=== PATIENT | female | born 1975 | race Caucasian/White ===

== ENCOUNTER 2021-10-07 08:27 | Outpatient (REF) | payer OTHER, SELFPAY ==
--- NOTE | ~2021-10-07 | MM_ITS ---
EXAMINATION: MM SCREENING DIGITAL BREAST TOMOSYNTHESIS, BILATERAL CLINICAL INFORMATION: Screening. Asymptomatic. Age 46. No prior breast imaging. No known family history breast cancer. The lifetime risk of breast cancer based on the Tyrer-Cuzick Model is 6%. COMPARISON: None (current study represents initial baseline exam). TECHNIQUE: Digital breast tomosynthesis is performed in both the craniocaudal and mediolateral oblique views along with computer-aided detection (CAD). Synthesized 2D images are generated from the tomosynthesis. FINDINGS: There are scattered areas of fibroglandular density (ACR BI-RADS breast composition Category b). There are no significant masses, abnormal calcifications, or other abnormalities. No architectural abnormality. The axilla and skin contours are unremarkable. MM/MM tomosynthesis screening BI IMPRESSION: No mammographic evidence of malignancy. ASSESSMENT: BI-RADS 1: Negative RECOMMENDATION: Routine annual mammography screening. This patient's information was entered into a reminder system with a target due date for their next mammogram.
--- NOTE | ~2021-10-07 | MM_ITS ---
EXAMINATION: BONE DENSITOMETRY CLINICAL INDICATION: Age-related osteoporosis without current pathological fracture. COMPARISON: Baseline BD dated 09/23/2018. TECHNIQUE: Using a [employer] DXA System (software version: 13.1) manufactured by [employer], dual-energy x-ray absorptiometry was performed of the lumbar spine and left hip. The images are of good technical quality. Summary results are attached. FINDINGS: AP SPINE L1-L4: Current: BMD 0.896 g/cm2, Z-score -2.2, T-score -2.4, osteopenia, 19.8% decrease from baseline (<5% change is not significant). Baseline: BMD 1.117 g/cm2. LEFT FEMUR, NECK: Current: BMD 0.750 g/cm2, Z-score -1.4, T-score -2.1, osteopenia. Baseline: BMD 0.621 g/cm2. LEFT FEMUR, TOTAL: Current: BMD 0.894 g/cm2, Z-score -0.6, T-score -0.9, normal, 16.1% increase from baseline (<5% change is not significant). Baseline: BMD 0.770 g/cm2. IDENTIFIED RISK FACTORS: Osteoporosis, tobacco use (current smoker), recurrent falls, height loss, low calcium intake, history of fracture (adult). Early menopause, secondary osteoporosis, anticonvulsants, hysterectomy. HISTORY OF FRACTURE: Lower leg/ankle. MEDICATIONS: None listed. MM/XR DEXA axial skeleton IMPRESSION: 1. DIAGNOSIS: Osteopenia based on the lowest T-score value of -2.4 in the lumbar spine applying World Health Organization criteria. 2. 10-YEAR FRACTURE RISK PREDICTION, FRAX: Major osteoporotic fracture (clinical spine, forearm, hip or shoulder) 9.9%. Hip fracture 2.9%. 3. Treatment Recommendations: NOF guidelines recommend consideration for treatment in postmenopausal women and men age 50 and older presenting with the following: -A hip or vertebral (clinical or morphometric) fracture. -T-score less than or equal to -2.5 at the femoral neck or spine after appropriate evaluation to exclude secondary causes. -Low bone mass at the hip or spine and a 10-year fracture probability by FRAX of greater than or equal to 3% for hip fracture or greater than or equal to 20% for major osteoporotic fracture based on the [place] adapted WHO algorithm. 4. Other Recommendations: All treatment decisions require clinical judgment and consideration of individual patient factors, including patient preferences, comorbidities, previous drug use, risk factors not captured in the FRAX model (e.g. frailty, falls, vitamin D deficiency, increased bone turnover, interval significant decline in bone density) and possible under or overestimation of fracture risk by FRAX. Additional medical evaluation for secondary cause of low bone mineral density may be appropriate. FUTURE SCAN RECOMMENDATION: People with diagnosed cases of osteoporosis or at high risk for fracture should have regular bone mineral density tests. For patients eligible for Medicare, routine testing is allowed once every 2 years. The testing frequency can be increased to one year for patients who have rapidly progressing disease, those who are receiving or discontinuing medical therapy to restore bone mass, or have additional risk factors.
== END 2021-10-07 08:28 | disposition home or self-care (01) ==
LOC: HO.MAMMO 08:27
PROVIDERS: PCP Internal Medicine; Visit Provider Internal Medicine
DX: Z12.31 Encounter for screening mammogram for malignant neoplasm of breast (principal); Z13.820 Encounter for screening for osteoporosis; M81.0 Age-related osteoporosis without current pathological fracture; Z78.0 Asymptomatic menopausal state
CPT/HCPCS: 77063; 77067; 77080

== ENCOUNTER → 2021-12-12 11:34 | Outpatient (BNVA) | payer OTHER, SELFPAY | PROVIDERS: PCP Internal Medicine; Visit Provider Internal Medicine Pulmonary Disease | DX: J45.909 Unspecified asthma, uncomplicated (principal); F17.210 Nicotine dependence, cigarettes, uncomplicated | CPT/HCPCS: 99202 ==

== ENCOUNTER 2021-12-29 09:49 | Outpatient (REF) | payer OTHER, SELFPAY ==
--- NOTE | 2021-12-29 12:56 | PFT_ITS ---
Forced vital capacity 92%. FEV1 89%. FEV1/FVC ratio 77. FEF 25/75 of 82% and MVV 73%. Post bronchodilator therapy, there is no significant change. Total lung capacity 102% and residual volume 117%. Diffusion capacity 56%. CONCLUSION: There is no evidence of restrictive or obstructive airway disorder. Also, no response to bronchodilator therapy. Diffusion capacity is moderately reduced as an isolated abnormality. This may be due to presence of pulmonary emphysema or non pulmonary factors. Clinical correlation is recommended. MD MUKESH Cary/MODL / [id number]
== END 2021-12-29 09:50 | disposition home or self-care (01) ==
LOC: HO.RESP 09:49
PROVIDERS: PCP Internal Medicine; Visit Provider Internal Medicine Pulmonary Disease
DX: J45.909 Unspecified asthma, uncomplicated (principal); R06.00 Dyspnea, unspecified
CPT/HCPCS: 94060; 94727; 94729

== ENCOUNTER 2022-12-25 10:58 | Outpatient (AMB) | payer OTHER, SELFPAY ==
[2022-12-25 11:02] VITALS: BP 102/68; PULSE 125; O2SAT 99; BMI 25.3
--- NOTE | 2022-12-25 11:02 | A.OFFPC_ITS ---
Vital Signs 12/25/22 11:02 Height 5 ft 1 in Weight 134 lb BMI 25.3 BP 102/68 Blood Pressure Location Lt brachial Position Sitting Pulse 125 H Pulse Source Pulse Oximeter Temp Source Skin Pulse Oximetry (%) 99 Oxygen Delivery Method Room Air Intake Visit Reasons: COPD, Allergies lamotrigine Allergy (Intermediate, Verified 09/17/22 14:05) Migraine spider venom [spider bites] Allergy (Intermediate, Verified 09/17/22 14:05) reaction to skin Tobacco use date assessed: 12/25/22 Dental Screening Dental Screen Date: 12/25/22 Did you have a dental visit in the last 12 months?: No Did you have a dental problem in the last 6 months where you did not have access to dental care?: No HPI COPD, HPI Details 47-year-old female with COPD seizures an d bipolar disorder last seen in June 2022. Patient is here for follow-up patient was advised blood work but this was not done. So far patient has continued to abstain from smoking. Otherwise denies any nausea vomiting fevers coughs colds no bowel bladder symptoms. On examination concerned about the tachycardia running at 120 it is regular. Advised EKG discussed about things that can cause the heart rate to run fast caffeine, ADHD medication coke albuterol, patient denies taking any drugs. Will continue to monitor for now. Patient is reminded about the blood work. Patient brought in a form for her electricity. 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 Father No problems noted. Sister No problems noted. Sister No problems noted. Sister No problems noted. Brother No problems noted. Brother Diabetes Daughter No problems noted. Daughter No problems noted. Daughter No problems noted. Son No problems noted. Other Mental health disorder Social History (Updated 10/23/20 @ 14:40 by Amee Merchant CMA) Housing: House Alcohol intake: current Alcohol intake frequency: holidays/special occasions only Patient Tobacco Use Status: Former Tobacco user Tobacco use type: Cigarette Cigarettes Per Day: 10 e-Cigarette/Vaping Use: Never Used Second Hand Smoke Exposure: Yes service: No Current occupational status: disabled Cognitive needs: No Hearing needs: No Vision needs: Yes Questionnaire Thrive Questionnaire Date Thrive assessed: 06/04/22 AUDIT C Alcohol Use Questionnaire (AUDIT-C) 1. How often do you have a drink containing alcohol?: Monthly or less 2. How many drinks containing alcohol do you have on a typical day when you are drinking?: 1 or 2 3. How often do you have six or more drinks on one occasion?: Never Total Score: 1 YVONNE-7 AMB Questionnaire YVONNE-7 Date YVONNE - 7 assessed: 06/04/22 Source: Developed by Drs. Tommie Kay, Mary Kay Curran, Clifford Armenta and colleagues, with an educational deanna from [employer]. Physical exam (Primary Care) Vital Signs: Last Vital Signs Pulse 125 H 12/25/22 11:02 BP 102/68 12/25/22 11:02 Pulse Ox 99 12/25/22 11:02 Oxygen Delivery Method Room Air 12/25/22 11:02 BMI result Body Mass Index 25.3 Tobacco/Smoking Status: Tobacco use Status Tobacco use date assessed 12/25/22 12/25/22 11:06 Patient Tobacco Use Status Former Tobacco user 12/25/22 11:06 Tobacco use type Cigarette 12/25/22 11:06 e-Cigarette/Vaping Use Never Used 12/25/22 11:06 Thrive Assessment: Date of Thrive Assessment Date Thrive assessed 06/04/22 12/25/22 11:06 Const General: alert; No acute distress Eyes Conjunctivae: conjunctivae normal Resp Auscultation: clear to auscultation bilaterally Cardio Rate: regular rate Rhythm: regular rhythm GI Inspection: Yes normal to inspection Extrem General: Yes normal to inspection and No edema Assessment and Plan Assessment & Plan (1) COPD (chronic obstructive pulmonary disease): Code(s): J44.9 - Chronic obstructive pulmonary disease, unspecified Plan: Continue with the inhalers Ventolin and Advair and always rinse mouth after using Advair (2) Colon cancer screening: Code(s): Z12.11 - Encounter for screening for malignant neoplasm of colon Plan: Patient is reminded about colonoscopy (3) 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: Comment: eeg April 2019 Code(s): G40.209 - Localization-related (focal) (partial) symptomatic epilepsy and epileptic syndromes with complex partial seizures, not intractable, without status epilepticus Qualifiers: Status epilepticus: without status epilepticus Qualified Code(s): G40.209 - Localization-related (focal) (partial) symptomatic epilepsy and epileptic syndromes with complex partial seizures, not intractable, without status epilepticus Plan: Continue with Vimpat patient is advised blood work (4) Bipolar disorder: Comment: [facility] Code(s): F31.9 - Bipolar disorder, unspecified Qualifiers: Active/Remission status: currently active Current bipolar episode type: mixed Current episode severity: moderate Qualified Code(s): F31.62 - Bipolar disorder, current episode mixed, moderate Plan: Continue with counseling and therapy patient is taking oxcarbazepine LULY pain fluoxetine Abilify (5) Sinus tachycardia: Code(s): R00.0 - Tachycardia, unspecified Orders: Orders ECG 12 lead EKG Today R00.0 - Tachycardia, unspecified Referrals Cologuard Test Z12.11 - Encounter for screening for malignant neoplasm of colon Coding Level of Care Code Est Pt Level 4 (22000) Diagnoses COPD (chronic obstructive pulmonary disease) J44.9 Colon cancer screening Z12.11 Partial symptomatic epilepsy with complex partial seizures, not intractable, without status epilepticus G40.209 Status epilepticus: without status epilepticus Bipolar disorder, current episode mixed, moderate F31.62 Active/Remission status: currently active Current bipolar episode type: mixed Current episode severity: moderate Sinus tachycardia R00.0
== END 2022-12-25 11:33 | disposition home or self-care (01) ==
PROVIDERS: PCP Internal Medicine; Visit Provider Internal Medicine
DX: J44.9 Chronic obstructive pulmonary disease, unspecified (principal); Z12.11 Encounter for screening for malignant neoplasm of colon; G40.209 Localization-related (focal) (partial) symptomatic epilepsy and epileptic syndromes with complex partial seizures, not intractable, without status epilepticus; F31.62 Bipolar disorder, current episode mixed, moderate; R00.0 Tachycardia, unspecified
CPT/HCPCS: 99214

== ENCOUNTER 2023-02-17 10:47 | Outpatient (AMB) | payer OTHER, SELFPAY ==
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
[2023-02-17 10:50] VITALS: BP 148/82; PULSE 89; RESP 15; O2SAT 95; BMI 29.1
== END 2023-02-17 11:41 | disposition home or self-care (01) ==
PROVIDERS: Visit Provider Psychiatry & Neurology Neurology
DX: G40.209 Localization-related (focal) (partial) symptomatic epilepsy and epileptic syndromes with complex partial seizures, not intractable, without status epilepticus (principal)
CPT/HCPCS: 99204

== ENCOUNTER → 2023-02-17 10:47 | Outpatient (BNVA) | payer OTHER, SELFPAY | PROVIDERS: Visit Provider Psychiatry & Neurology Neurology | DX: G40.209 Localization-related (focal) (partial) symptomatic epilepsy and epileptic syndromes with complex partial seizures, not intractable, without status epilepticus (principal); Z79.899 Other long term (current) drug therapy | CPT/HCPCS: 99202 ==

== ENCOUNTER 2023-05-24 09:32 | Outpatient (AMB) | payer OTHER, SELFPAY ==
--- NOTE | 2023-05-24 09:34 | A.OFFPC_ITS ---
Vital Signs 05/24/23 09:36 Height 5 ft 1 in Weight 156 lb 8 oz BMI 29.6 BP 130/72 Blood Pressure Location Lt brachial Position Sitting Pulse 88 Pulse Source Pulse Oximeter Pulse Oximetry (%) 97 Oxygen Delivery Method Room Air Intake Visit Reasons: knee pain Intake Note: Patient is here today for right knee pain, with swelling. OTC not helping, nor is icing, elevation. Community Worker Required: No Aircraft Lay Out Worker: Not Required per policy Accompanied by: Self / Same As Patient Allergies lamotrigine Allergy (Intermediate, Verified 05/24/23 10:14) Migraine spider venom [spider bites] Allergy (Intermediate, Verified 05/24/23 10:14) reaction to skin Medication List - Last Reconciled 05/24/23 by Parish Connolly MD albuterol sulfate 2.5 mg (3 mL) inhalation QID PRN albuterol sulfate 90 mcg/actuation (Ventolin HFA) 2 puffs PO Q4-6H PRN aripiprazole (Abilify) 5 mg PO DAILY buprenorphine-naloxone 8-2 mg Clean slate erdbsrpoxj-phcrzgqpegwrx-jkvw 50-300-40 mg 1 cap PO TID PRN clonazepam [facility] dextroamphetamine-amphetamine 20 mg 1 tab PO DAILY fluoxetine mg PO DAILY fluticasone propion-salmeterol 230-21 mcg/actuation (Advair HFA) 2 puffs inhalation Q12H 30 days gabapentin 600 mg PO TID levetiracetam 250 mg PO BID nebulizers (Aeroneb Go Nebulizer) As directed oxcarbazepine 600 mg PO BID Tobacco use date assessed: 05/24/23 Dental Screening Dental Screen Date: 05/24/23 Did you have a dental visit in the last 12 months?: No Did you have a dental problem in the last 6 months where you did not have access to dental care?: No Was dental information given to patient?: No (dentures) HPI knee pain HPI Details 48-[facility]-old [facility] I am covering for her primary care provider. Patient is complaining of her right knee pain for the past 10 days. Does not recall any fall or injury prior to the onset of symptoms. Pain on walking and pain on bearing weight on the right leg. No fevers or chills. 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 Father No problems noted. Sister No problems noted. Sister No problems noted. Sister No problems noted. Brother No problems noted. Brother Diabetes Daughter No problems noted. Daughter No problems noted. Daughter No problems noted. Son No problems noted. Other Mental health disorder Social History Housing: House Alcohol intake: current Alcohol intake frequency: holidays/special occasions only Patient Tobacco Use Status: Former Tobacco user Tobacco use type: Cigarette Cigarettes Per Day: 10 e-Cigarette/Vaping Use: Never Used Second Hand Smoke Exposure: Yes service: No Current occupational status: disabled Cognitive needs: No Hearing needs: No Vision needs: Yes Questionnaire PHQ-9 Over the last 2 weeks, how often have you been bothered by any of the following problems? 1. Little interest or pleasure in doing things: nearly every day 2. Feeling down, depressed, or hopeless: nearly every day 3. Trouble falling or staying asleep, or sleeping too much: nearly every day 4. Feeling tired or having little energy: nearly every day 5. Poor appetite or overeating: nearly every day 6. Feeling bad about yourself - or that you are a failure or have let yourself or your family down: nearly every day 7. Trouble concentrating on things, such as reading the newspaper or watching television: nearly every day 8. Moving or speaking so slowly that other people could have noticed. Or the opposite - being so fidgety or restless that you have been moving around a lot more than usual: several days 9. Thoughts that you would be better off or of hurting yourself in some way: not at all Total score: 22 Source: Developed by Drs. Tommie Kay, Mary Kay Curran, Clifford Armenta and colleagues, with an educational deanna from [employer]. Thrive Questionnaire Date Thrive assessed: 05/24/23 I am a: Patient What is your living situation today?: I have a steady place to live Within the past 12 months, did the food you bought not last and you didn't have the money to get more?: Never true Within the past 12 months, did you worry whether your food would run out before you got money to buy more?: Never true Do you have trouble paying for medicines?: No Do you have trouble getting transportation to medical appointments?: No Do you have trouble paying your heating and electricity bill?: No Do you have trouble taking care of your child, family member or friend?: No Do you have trouble with day-to-day activities such as bathing, preparing meals, shopping, managing finances, etc.?: No Are you currently unemployed and looking for a job?: No Are you interested in more education?: No Currently or been in a relationship where the following occur: no concerns reported THRIVE Score: 0 AUDIT C Alcohol Use Questionnaire (AUDIT-C) 1. How often do you have a drink containing alcohol?: Monthly or less 2. How many drinks containing alcohol do you have on a typical day when you are drinking?: 1 or 2 Total Score: 1 YVONNE-7 AMB Questionnaire YVONNE-7 Date YVONNE - 7 assessed: 05/24/23 Feeling nervous, anxious, or on edge: 2 = More than half the days Not being able to stop or control worryin = Nearly every day Worrying too much about different things: 3 = Nearly every day Trouble relaxin = Nearly every day Being so restless that it is hard to sit still: 0 = Not at all Becoming easily annoyed or irritable: 2 = More than half the days Feeling afraid as if something awful might happen: 3 = Nearly every day Total YVONNE-7 score (0-4 normal; 5-9 mild; 10-14 moderate; 15-21 severe): 16 Source: Developed by Drs. Tommie Kay, Mary Kay Curran, Clifford Armenta and colleagues, with an educational deanna from [employer]. Physical exam (Primary Care) Vital Signs: Last Vital Signs Pulse 88 05/24/23 09:36 BP 130/72 05/24/23 09:36 Pulse Ox 97 05/24/23 09:36 Oxygen Delivery Method Room Air 05/24/23 09:36 BMI result Body Mass Index 29.6 Tobacco/Smoking Status: Tobacco use Status Tobacco use date assessed 05/24/23 05/24/23 09:44 Patient Tobacco Use Status Former Tobacco user 05/24/23 09:44 Tobacco use type Cigarette 05/24/23 09:44 e-Cigarette/Vaping Use Never Used 05/24/23 09:44 PHQ-9: PHQ-9 Score PHQ-9: Total score 22 05/24/23 09:44 Thrive Assessment: Date of Thrive Assessment Date Thrive assessed 05/24/23 05/24/23 09:44 Currently or been in a relationship where the following occur: no concerns reported Extrem Other: Right knee: Supra patellar swelling, joint line discomfort. Pain on extreme flexion of the knee. Assessment and Plan Assessment & Plan (1) Sprain of right knee: Code(s): S83.91XA - Sprain of unspecified site of right knee, initial encounter Plan: Knee brace provided. Meloxicam ordered. X-ray of the knee ordered. If symptoms do not improve to follow-up here in 1 week. Patient verbally understanding. Coding Level of Care Code Est Pt Level 4 (21105) Diagnoses Sprain of right knee S83.91XA
[2023-05-24 09:36] VITALS: BP 130/72; PULSE 88; O2SAT 97; BMI 29.6
== END 2023-05-24 10:14 | disposition home or self-care (01) ==
PROVIDERS: PCP Internal Medicine; Visit Provider Internal Medicine
DX: S83.91XA Sprain of unspecified site of right knee, initial encounter (principal); Z87.891 Personal history of nicotine dependence
CPT/HCPCS: 99214

== ENCOUNTER 2023-05-24 10:30 | Outpatient (REF) | payer OTHER, SELFPAY ==
--- NOTE | ~2023-05-24 | XR_ITS ---
EXAMINATION: XR KNEE, RIGHT CLINICAL INFORMATION: Right knee injury and pain COMPARISON: None available. TECHNIQUE: Three views of the right knee. FINDINGS: BONES: Bony structures are intact. There is no focal bone destruction or periosteal reaction seen. JOINTS: Alignment of joints is normal. SOFT TISSUE: Right suprapatellar fat pad shows bulging increase in density. No radiopaque foreign body or abnormal air collection is seen. XR/XR knee RT 3V IMPRESSION: 1. Right knee effusion is present. 2. No fracture or dislocation or signs of osteomyelitis are found.
== END 2023-05-24 10:31 | disposition home or self-care (01) ==
LOC: HO.XRAY 10:30
PROVIDERS: PCP Internal Medicine; Visit Provider Internal Medicine
DX: S83.91XA Sprain of unspecified site of right knee, initial encounter (principal)
CPT/HCPCS: 73562

== ENCOUNTER 2023-06-30 12:52 | Outpatient (AMB) | payer OTHER, SELFPAY ==
[2023-06-30 12:56] VITALS: BP 138/80; PULSE 82; O2SAT 98; BMI 28.3
--- NOTE | 2023-06-30 12:56 | A.OFFPC_ITS ---
Vital Signs 06/30/23 12:56 Height 5 ft 1 in Weight 150 lb BMI 28.3 BP 138/80 Blood Pressure Location Lt brachial Position Sitting Pulse 82 Pulse Source Pulse Oximeter Pulse Oximetry (%) 98 Oxygen Delivery Method Room Air Intake Visit Reasons: Follow up Allergies lamotrigine Allergy (Intermediate, Verified 06/30/23 12:57) Migraine spider venom [spider bites] Allergy (Intermediate, Verified 06/30/23 12:57) reaction to skin Tobacco use date assessed: 05/24/23 Dental Screening Dental Screen Date: 06/30/23 Did you have a dental visit in the last 12 months?: Yes Did you have a dental problem in the last 6 months where you did not have access to dental care?: No Was dental information given to patient?: Patient has dentist HPI Follow up HPI Details 48-year-old overweight female with a his tory of COPD seizures bipolar disorder coming in for follow-up. Last seen in December 2022. Patient's mammo gram is due and was reminded about colonoscopy at that time. Patient had an x- ray of the right knee having in effusion was [facility]. Patient follows up with Neurology for the seizures complex partial 2 generalized tonic- clonic advised to have long-term video monitoring and has been referred to epilepsy Clinic at [facility] on Trileptal 600 mg twice a day gabapentin 600 mg 3 times a day and started on Keppra 250 mg twice a day. knee pain better - had fall from one of the seizures. 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 Father No problems noted. Sister No problems noted. Sister No problems noted. Sister No problems noted. Brother No problems noted. Brother Diabetes Daughter No problems noted. Daughter No problems noted. Daughter No problems noted. Son No problems noted. Other Mental health disorder Social History Housing: House Alcohol intake: current Alcohol intake frequency: holidays/special occasions only Patient Tobacco Use Status: Former Tobacco user Tobacco use type: Cigarette Cigarettes Per Day: 10 e-Cigarette/Vaping Use: Never Used Second Hand Smoke Exposure: Yes service: No Current occupational status: disabled Cognitive needs: No Hearing needs: No Vision needs: Yes Questionnaire PHQ-9 Over the last 2 weeks, how often have you been bothered by any of the following problems? 1. Little interest or pleasure in doing things: nearly every day 2. Feeling down, depressed, or hopeless: nearly every day 3. Trouble falling or staying asleep, or sleeping too much: nearly every day 4. Feeling tired or having little energy: nearly every day 5. Poor appetite or overeating: nearly every day 6. Feeling bad about yourself - or that you are a failure or have let yourself or your family down: nearly every day 7. Trouble concentrating on things, such as reading the newspaper or watching television: nearly every day 8. Moving or speaking so slowly that other people could have noticed. Or the opposite - being so fidgety or restless that you have been moving around a lot more than usual: several days 9. Thoughts that you would be better off or of hurting yourself in some way: not at all Total score: 22 Source: Developed by Drs. Tommie Kay, Mary Kay Curran, Clifford Armenta and colleagues, with an educational deanna from [employer]. Thrive Questionnaire Date Thrive assessed: 05/24/23 AUDIT C Alcohol Use Questionnaire (AUDIT-C) 1. How often do you have a drink containing alcohol?: Monthly or less 2. How many drinks containing alcohol do you have on a typical day when you are drinking?: 1 or 2 Total Score: 1 YVONNE-7 AMB Questionnaire YVONNE-7 Date YVONNE - 7 assessed: 05/24/23 Source: Developed by Drs. Tommie Kay, Mary Kay Curran, Clifford Armenta and colleagues, with an educational deanna from [employer]. Physical exam (Primary Care) Vital Signs: Last Vital Signs Pulse 82 06/30/23 12:56 BP 138/80 06/30/23 12:56 Pulse Ox 98 06/30/23 12:56 Oxygen Delivery Method Room Air 06/30/23 12:56 BMI result Body Mass Index 28.3 Tobacco/Smoking Status: Tobacco use Status Tobacco use date assessed 05/24/23 06/30/23 13:00 Patient Tobacco Use Status Former Tobacco user 06/30/23 13:00 Tobacco use type Cigarette 06/30/23 13:00 e-Cigarette/Vaping Use Never Used 06/30/23 13:00 PHQ-9: PHQ-9 Score PHQ-9: Total score 22 06/30/23 13:00 Thrive Assessment: Date of Thrive Assessment Date Thrive assessed 05/24/23 06/30/23 13:00 Const General: alert; No acute distress Eyes Conjunctivae: conjunctivae normal Resp Auscultation: clear to auscultation bilaterally Cardio Rate: regular rate Rhythm: regular rhythm GI Inspection: Yes normal to inspection Extrem General: Yes normal to inspection and No edema Assessment and Plan Assessment & Plan (1) 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: Comment: poorly controlled Code(s): G40.209 - Localization-related (focal) (partial) symptomatic epilepsy and epileptic syndromes with complex partial seizures, not intractable, without status epilepticus Plan: Patient was seen by Neurology and has been referred to a more specialized seizure clinic in [facility] (2) COPD (chronic obstructive pulmonary disease): Code(s): J44.9 - Chronic obstructive pulmonary disease, unspecified Plan: Presently on albuterol inhaler and Advair (3) Bipolar disorder: Comment: [facility] Counseling Code(s): F31.9 - Bipolar disorder, unspecified Qualifiers: Active/Remission status: currently active Current bipolar episode type: mixed Current episode severity: moderate Qualified Code(s): F31.62 - Bipolar disorder, current episode mixed, moderate Plan: Continue with counseling and therapy (4) Colon cancer screening: Code(s): Z12.11 - Encounter for screening for malignant neoplasm of colon Plan: Patient is reminded once again for colonoscopy testing. 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
== END 2023-06-30 13:30 | disposition home or self-care (01) ==
PROVIDERS: PCP Internal Medicine; Visit Provider Internal Medicine
DX: G40.209 Localization-related (focal) (partial) symptomatic epilepsy and epileptic syndromes with complex partial seizures, not intractable, without status epilepticus (principal); J44.9 Chronic obstructive pulmonary disease, unspecified; F31.62 Bipolar disorder, current episode mixed, moderate; Z12.11 Encounter for screening for malignant neoplasm of colon; Z12.39 Encounter for other screening for malignant neoplasm of breast
CPT/HCPCS: 99214

== ENCOUNTER 2023-07-27 08:04 | Outpatient (REF) | payer OTHER, SELFPAY ==
[2023-07-27 08:52] LABS: MANUAL DIFF FLAG NO
[2023-07-27 09:54] LABS: Basophils Absolute Auto 0.1 X10*3/uL (0.0-0.2); Basophils Percent Auto 0.6 % (0-2); Hematocrit 44.3 % (37.0-47.0); Hemoglobin 15.3 g/dl (12.0-16.0); Imm Gran Abs Auto 0.03 X10*3/uL (0.00-0.03); Imm Gran Pct Auto 0.4 % (0.0-0.4); Lymphocytes Absolute Auto 2.9 X10*3/uL (1.2-4.9); Lymphocytes Percent Auto 35.8 % (20-40); Mean Corpuscular HGB Conc 34.5 g/dl (31.0-35.0); Mean Corpuscular Hemoglobin 30.4 pg (27.0-33.0); Mean Corpuscular Volume 88.1 fL (80.0-98.0); Mean Platelet Volume 8.9 fL (9.4-12.3); Monocytes Absolute Auto 0.5 X10*3/uL (0.1-1.2); Monocytes Percent Auto 6.4 % (2-11); Neutrophils Absolute Auto 4.5 x10*3/uL (2.0-8.3); Neutrophils Percent Auto 56.8 % (45-73); Platelet Count 370 X10*3/uL (160-400); Red Blood Count 5.03 X10*6/uL (4.20-5.50); Red Cell Distribution Width 15.9 % (11.0-16.0)
[2023-07-27 11:00] LABS: Erythrocyte Sedimentation Rate 11 MM/HR (0-20)
[2023-07-27 11:24] LABS: Alanine Aminotransferase 30 U/L (0-31); Albumin Level 4.4 g/dL (3.5-5.0); Alkaline Phosphatase 79 U/L (39-117); Anion Gap 14 (12-20); Aspartate Amino Transferase 19 U/L (5-31); Bilirubin Total 0.4 mg/dL (0.0-1.0); Blood Urea Nitrogen 8 mg/dL (9-16); Calcium 9.2 mg/dL (8.4-10.2); Carbon Dioxide 23 mmol/L (22-29); Chloride 106 mmol/L (96-108); Cholesterol 333 mg/dL (<200); Estimated Glomerular Filt Rate > 60; Glucose Random 100 mg/dL (60-115); HDL Cholesterol 29 mg/dL (>40); LDL Cholesterol Calculated 249 mg/dL (<100); Sodium 139 mmol/L (135-145); Thyroid Stimulating Hormone 1.52 uIU/mL (0.32-4.0); Total Protein 7.4 g/dL (6.5-8.0); Triglycerides 275 mg/dL (<150); Vitamin D 25-OH Total 23.9 ng/mL (>30)
[2023-07-27 12:06] LABS: Folate 2.4 ng/mL (> or = 4.0); Vitamin B12 316 pg/mL (200-900)
== END 2023-07-27 08:05 | disposition home or self-care (01) ==
LOC: HO.MAMMO 08:04
PROVIDERS: PCP Internal Medicine; Visit Provider Internal Medicine
DX: Z12.31 Encounter for screening mammogram for malignant neoplasm of breast (principal); G40.209 Localization-related (focal) (partial) symptomatic epilepsy and epileptic syndromes with complex partial seizures, not intractable, without status epilepticus; M79.10 Myalgia, unspecified site; E78.00 Pure hypercholesterolemia, unspecified
CPT/HCPCS: 36415; 77063; 77067; 80053; 80061; 82306; 82607; 82746; 84439; 84443; 85025; 85652

== ENCOUNTER → 2023-07-27 08:08 | Outpatient (BNV) | payer OTHER, SELFPAY | PROVIDERS: PCP Internal Medicine; Visit Provider Radiology Diagnostic Radiology | DX: Z12.31 Encounter for screening mammogram for malignant neoplasm of breast (principal) | CPT/HCPCS: 77063; 77067 ==

== ENCOUNTER → 2023-08-18 11:08 | Outpatient (BNVA) | payer OTHER, SELFPAY | PROVIDERS: PCP Internal Medicine; Visit Provider Psychiatry & Neurology Neurology | DX: G40.209 Localization-related (focal) (partial) symptomatic epilepsy and epileptic syndromes with complex partial seizures, not intractable, without status epilepticus (principal) | CPT/HCPCS: 99212 ==

== ENCOUNTER 2023-12-29 10:32 | Outpatient (AMB) | payer OTHER, SELFPAY ==
[2023-12-29 10:35] VITALS: BP 144/86; PULSE 80; O2SAT 94; BMI 27.6
--- NOTE | 2023-12-29 10:35 | A.OFFPC_ITS ---
Vital Signs 12/29/23 10:35 12/29/23 10:58 Height 5 ft 1 in Weight 146 lb BMI 27.6 BP 144/86 H 150/80 H Blood Pressure Location Lt brachial Lt brachial Position Sitting Sitting Pulse 80 Pulse Source Pulse Oximeter Pulse Oximetry (%) 94 Oxygen Delivery Method Room Air Intake Visit Reasons: ANNUAL Buffing Wheel Former Automatic Required: No Accompanied by: Self / Same As Patient Allergies lamotrigine Allergy (Intermediate, Verified 12/29/23 10:35) Migraine spider venom [spider bites] Allergy (Intermediate, Verified 12/29/23 10:35) reaction to skin Tobacco use date assessed: 05/24/23 Dental Screening Dental Screen Date: 06/30/23 HPI ANNUAL HPI Details 48-year-old overweight female with a his tory of COPD bipolar disorder and history of seizures last seen in 07/07/2023. Patient was referred to Gastroenterology for colon test. Otherwise mammogram is up-to-date. Bone density is due. Review of the notes has seen Neurology in 08/18/2023 patient has stopped Keppra 3 months ago due to side effects. Complains of 2-3 seizures a week patient was advised to have long-term video monitoring patient is being referred to epilepsy Clinic at [facility] urgently. On Trileptal 600 mg twice a day gabapentin 800 mg mg 3 times a day advised to get Keppra 250 mg twice a day seein [facility] Neurology 72 hour EEG 01/2024- no keppra on med. Review of the notes in July had blood work done and because of the very high cholesterol was called on to follow-up in August 16. Patient was not seen at that time and the patient is next seen today. 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 Father No problems noted. Sister No problems noted. Sister No problems noted. Sister No problems noted. Brother No problems noted. Brother Diabetes Daughter No problems noted. Daughter No problems noted. Daughter No problems noted. Son No problems noted. Other Mental health disorder Social History Housing: House Alcohol intake: current Alcohol intake frequency: holidays/special occasions only Patient Tobacco Use Status: Former Tobacco user Tobacco use type: Cigarette Cigarettes Per Day: 10 e-Cigarette/Vaping Use: Never Used Second Hand Smoke Exposure: Yes service: No Current occupational status: disabled Cognitive needs: No Hearing needs: No Vision needs: Yes Questionnaire PHQ-9 Over the last 2 weeks, how often have you been bothered by any of the following problems? 1. Little interest or pleasure in doing things: nearly every day 2. Feeling down, depressed, or hopeless: nearly every day 3. Trouble falling or staying asleep, or sleeping too much: nearly every day 4. Feeling tired or having little energy: nearly every day 5. Poor appetite or overeating: nearly every day 6. Feeling bad about yourself - or that you are a failure or have let yourself or your family down: nearly every day 7. Trouble concentrating on things, such as reading the newspaper or watching television: nearly every day 8. Moving or speaking so slowly that other people could have noticed. Or the opposite - being so fidgety or restless that you have been moving around a lot more than usual: several days 9. Thoughts that you would be better off or of hurting yourself in some way: not at all Total score: 22 Source: Developed by Drs. Tommie Kay, Mary Kay Curran, Clifford Armenta and colleagues, with an educational deanna from [employer]. Thrive Questionnaire Date Thrive assessed: 05/24/23 I am a: Patient What is your living situation today?: I have a steady place to live Within the past 12 months, did the food you bought not last and you didn't have the money to get more?: I choose not to answer this question Within the past 12 months, did you worry whether your food would run out before you got money to buy more?: I choose not to answer this question Do you have trouble paying for medicines?: I choose not to answer this question Do you have trouble getting transportation to medical appointments?: I choose not to answer this question Do you have trouble paying your heating and electricity bill?: I choose not to answer this question Do you have trouble taking care of your child, family member or friend?: I choose not to answer this question Do you have trouble with day-to-day activities such as bathing, preparing meals, shopping, managing finances, etc.?: I choose not to answer this question Are you currently unemployed and looking for a job?: I choose not to answer this question Are you interested in more education?: I choose not to answer this question Please select the resources that you would like help with: None Currently or been in a relationship where the following occur: I choose not to answer THRIVE Score: 0 AUDIT C Alcohol Use Questionnaire (AUDIT-C) 1. How often do you have a drink containing alcohol?: Monthly or less 2. How many drinks containing alcohol do you have on a typical day when you are drinking?: 1 or 2 3. How often do you have six or more drinks on one occasion?: Never Total Score: 1 YVONNE-7 AMB Questionnaire YVONNE-7 Date YVONNE - 7 assessed: 05/24/23 Feeling nervous, anxious, or on edge: 1 = Several days Not being able to stop or control worryin = Several days Worrying too much about different things: 1 = Several days Trouble relaxin = Several days Being so restless that it is hard to sit still: 1 = Several days Becoming easily annoyed or irritable: 0 = Not at all Feeling afraid as if something awful might happen: 1 = Several days Total YVONNE-7 score (0-4 normal; 5-9 mild; 10-14 moderate; 15-21 severe): 6 Source: Developed by Drs. Tommie Kay, Mary Kay Curran, Clifford Armenta and colleagues, with an educational deanna from [employer]. Review of Systems Const Denies poor appetite and Denies weakness Eyes Denies no additional complaints ENT Reports Normal hearing present, Denies dizziness, Denies nasal congestion, Denies tinnitus and Denies sore throat Card Denies chest pain, Denies syncope, Denies rapid heart rate and Denies dyspnea Resp Denies cough and Denies dyspnea GI Denies change in stool character, Reports constipation, Denies diarrhea, Denies nausea and Denies vomiting Denies urinary frequency, Denies difficulty voiding and Denies dysuria Neuro Reports Normal hearing present, Denies confusion, Denies dizziness, Denies syncope and Denies weakness Psych Denies confusion Physical exam (Primary Care) Vital Signs: Last Vital Signs Pulse 80 12/29/23 10:35 BP 144/86 H 12/29/23 10:35 Pulse Ox 94 12/29/23 10:35 Oxygen Delivery Method Room Air 12/29/23 10:35 BMI result Body Mass Index 27.6 Tobacco/Smoking Status: Tobacco use Status Tobacco use date assessed 05/24/23 12/29/23 10:40 Patient Tobacco Use Status Former Tobacco user 12/29/23 10:40 Tobacco use type Cigarette 12/29/23 10:40 e-Cigarette/Vaping Use Never Used 12/29/23 10:40 PHQ-9: PHQ-9 Score PHQ-9: Total score 22 12/29/23 10:40 Thrive Assessment: Date of Thrive Assessment Date Thrive assessed 05/24/23 12/29/23 10:40 Currently or been in a relationship where the following occur: I choose not to answer Const General: No confusion Orientation/consciousness: No confusion HENMT Head: Yes normocephalic Ears: external ears normal and TM's normal bilaterally Face and sinus: Yes normal facial exam Mouth: moist mucous membranes Throat: Yes tonsils normal Eyes Conjunctivae: conjunctivae normal Pupils: Equal, round and reactive pupils present and Pupil accommodation reflex normal Direct Ophthalmoscopy: normal light reflex Neck Neck: No lymphadenopathy Thyroid: Thyroid normal Chest Chest palpation & inspection: normal inspection of the chest Resp Effort & Inspection: normal respiratory effort and no audible wheezes Auscultation: clear to auscultation bilaterally, no crackles, no wheezes and lung sounds not diminished Cardio Rate: regular rate Rhythm: regular rhythm Peripheral pulses: radial pulses present and dorsalis pedis present GI Palpation (GI): no masses Auscultation: normal bowel sounds and normoactive bowel sounds Rectal Exam - Female: deferred Skin General skin exam: no rashes or lesions noted Rashes: no rashes Neuro General: No confusion Cranial nerves: Yes Equal, round and reactive pupils present and Yes Normal hearing present Cognition (Neuro): normal cognition Gait exam (Neuro): Normal gait present Motor exam (neuro): 5/5 motor strength present throughout Deep tendon reflexes (DTR's): Right brachioradialis reflex intensity grade: 2+, Left brachioradialis reflex intensity grade: 2+, Right patellar reflex intensity grade: 2+ and Left patellar reflex intensity grade: 2+ Extrem General: No edema Assessment and Plan Assessment & Plan (1) 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 Has been placed on Keppra gabapentin and Trileptal (2) Osteopenia: Comment: September 2021 Code(s): M85.80 - Other specified disorders of bone density and structure, unspecified s ite Plan: Discussed about bone density and the option to do it. (3) COPD (chronic obstructive pulmonary disease): Code(s): J44.9 - Chronic obstructive pulmonary disease, unspecified Plan: Continue with albuterol inhaler. Advair HFA (4) Bipolar disorder: Comment: [facility] Counseling Code(s): F31.9 - Bipolar disorder, unspecified Qualifiers: Active/Remission status: currently active Current bipolar episode type: mixed Current episode severity: moderate Qualified Code(s): F31.62 - Bipolar disorder, current episode mixed, moderate Plan: Continue with counseling and therapy (5) Hypercholesterolemia: Code(s): E78.00 - Pure hypercholesterolemia, unspecified Plan: Avoid fried foods, chicken skin, eggs, butter margarine, pastries and meat. Be it pork or beef they have a lot of cholesterol will need to retest LDL goal of less than 130 and triglyceride of less than 150 (6) Impaired glucose tolerance: Code(s): R73.02 - Impaired glucose tolerance (oral) Plan: Decrease the amount of carbohydrate intake, pasta, bread, rice and potatoes are all sugar and that is aside from all the sweet stuff, remember that fruits are good but they are Sweet also. (7) Hypertension: Code(s): I10 - Essential (primary) hypertension Plan: Blood pressure elevated on numerous times. Blood pressure monitor prescribed and will start on lisinopril 5 mg once a day advised to keep well hydrated did discuss concerns about the ADHD medication as it is a stimulant. (8) Hand joint pain: Code(s): M25.549 - Pain in joints of unspecified hand Plan: Because of the elevated blood pressure advised to hold off from any anti- inflammatory. Voltaren gel prescribed and may use Tylenol. Orders: Orders Comprehensive Met. Panel Today E78.00 - Pure hypercholesterolemia, unspecified Thyroid Stimulating Hormone Today E78.00 - Pure hypercholesterolemia, unspecified Complete Blood Count Auto Diff Today E78.00 - Pure hypercholesterolemia, unspecified Free T4 (Free Thyroxine) Today E78.00 - Pure hypercholesterolemia, unspecified Lipid Panel Today E78.00 - Pure hypercholesterolemia, unspecified Vitamin B12 and Folate Today E78.00 - Pure hypercholesterolemia, unspecified Vitamin D 25-OH Total Today E78.00 - Pure hypercholesterolemia, unspecified Hemoglobin A1c Today E78.00 - Pure hypercholesterolemia, unspecified Medications: New blood pressure monitor (Blood Pressure Kit) As directed 1 ea 0RF I10 - Essential (primary) hypertension lisinopril 5 mg PO DAILY 30 tabs 3RF I10 - Essential (primary) hypertension diclofenac sodium 1% (Voltaren Arthritis Pain) apply to single knee, ankle, foot; for foot includes sole/toes/top of foot 4 grams topical QID 200 grams 2RF M25.549 - Pain in joints of unspecified hand Coding Level of Care Code Est Pt Prev Care 40-64y([id number]) Diagnoses 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
[2023-12-29 10:58] VITALS: BP 150/80
== END 2023-12-29 11:14 | disposition home or self-care (01) ==
PROVIDERS: PCP Internal Medicine; Visit Provider Internal Medicine
DX: G40.209 Localization-related (focal) (partial) symptomatic epilepsy and epileptic syndromes with complex partial seizures, not intractable, without status epilepticus (principal); J44.9 Chronic obstructive pulmonary disease, unspecified; F31.62 Bipolar disorder, current episode mixed, moderate; M85.80 Other specified disorders of bone density and structure, unspecified site; E78.00 Pure hypercholesterolemia, unspecified; R73.02 Impaired glucose tolerance (oral); I10 Essential (primary) hypertension; M25.549 Pain in joints of unspecified hand
CPT/HCPCS: 99214

== ENCOUNTER 2024-05-16 10:53 | Outpatient (AMB) | payer OTHER, SELFPAY ==
--- NOTE | 2024-05-16 11:01 | A.OFFPC_ITS ---
Vital Signs 3 05/16/24 11:03 Height 5 ft 1 in Weight 143 lb 8 oz BMI 27.1 BP 130/70 Blood Pressure Location Lt brachial Position Sitting Pulse 99 Pulse Source Pulse Oximeter Temp 97.1 F Temp Source Skin Pulse Oximetry (%) 97 Oxygen Delivery Method Room Air Intake Visit Reasons: stitched popped and looks infected Intake Note: Patient is here to follow up on stitched popped and looks infected on right pinky. Possible cotton ball in right ear. Registered Nurse Supervisor Required: No Cat Sitter: Not Required per policy Accompanied by: Self / Same As Patient Allergies lamotrigine Allergy (Intermediate, Verified 05/16/24 11:02) Migraine spider venom [spider bites] Allergy (Intermediate, Verified 05/16/24 11:02) reaction to skin Medication List - Last Reconciled 05/16/24 by Michela Larsen PA-C albuterol sulfate 2.5 mg (3 mL) inhalation QID PRN aripiprazole (Abilify) 5 mg PO DAILY blood pressure monitor (Blood Pressure Kit) As directed buprenorphine-naloxone 8-2 mg Clean slate cieoohamre-mfsvlgnvnciqh-qzvo 50-300-40 mg 1 cap PO TID PRN clonazepam Psychiatrist [facility] dextroamphetamine-amphetamine 20 mg 1 tab PO DAILY diclofenac sodium 1% (Voltaren Arthritis Pain) 4 grams topical QID fluoxetine mg PO DAILY fluticasone propion-salmeterol 230-21 mcg/actuation (Advair HFA) 2 puffs inhalation Q12H 30 days gabapentin 800 mg PO TID lisinopril 5 mg PO DAILY meloxicam 15 mg PO DAILY nebulizers (Aeroneb Go Nebulizer) As directed oxcarbazepine 600 mg PO BID Ventolin HFA 90 mcg/actuation (albuterol sulfate) 2 puffs PO Q4-6H PRN NS Tobacco use date assessed: 05/16/24 Dental Screening Dental Screen Date: 05/16/24 Did you have a dental visit in the last 12 months?: No Did you have a dental problem in the last 6 months where you did not have access to dental care?: No Was dental information given to patient?: No (Dentures) HPI stitched popped and looks infected 2 HPI0 Details 49-year-old female with past medical his tory of COPD, bipolar disorder and history of seizures last seen 12/2023 coming in for acute problem. Patient tells us today she was washing dishes last week, Wednesday, when she cut her left pinky on a glass. She went to urgent care and had sutures placed and was unsure of how many were placed but she did not recieve tetanus vaccine or antibiotics. The sutures came out over the course of the last several days the last suture falling off yesterday. For the last several days she has noticed a thick discharge from the wound as well as redness around the wound and pain. 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 Father No problems noted. Sister No problems noted. Sister No problems noted. Sister No problems noted. Brother No problems noted. Brother Diabetes Daughter No problems noted. Daughter No problems noted. Daughter No problems noted. Son No problems noted. Other Mental health disorder Social History Housing: House Alcohol intake: current Alcohol intake frequency: holidays/special occasions only Patient Tobacco Use Status: Former Tobacco user Tobacco use type: Cigarette Cigarettes Per Day: 10 e-Cigarette/Vaping Use: Never Used Second Hand Smoke Exposure: Yes service: No Current occupational status: disabled Cognitive needs: No Hearing needs: No Vision needs: Yes Questionnaire PHQ-9 Over the last 2 weeks, how often have you been bothered by any of the following problems? 1. Little interest or pleasure in doing things: not at all 2. Feeling down, depressed, or hopeless: not at all 3. Trouble falling or staying asleep, or sleeping too much: not at all 4. Feeling tired or having little energy: not at all 5. Poor appetite or overeating: not at all 6. Feeling bad about yourself - or that you are a failure or have let yourself or your family down: not at all 7. Trouble concentrating on things, such as reading the newspaper or watching television: not at all 8. Moving or speaking so slowly that other people could have noticed. Or the opposite - being so fidgety or restless that you have been moving around a lot more than usual: not at all 9. Thoughts that you would be better off or of hurting yourself in some way: not at all Total score: 0 Depression Screening Interpretation: Negative Depression Screening Done: Yes Source: Developed by Drs. Tommie Kay, Mary Kay Curran, Clifford Armenta and colleagues, with an educational deanna from [employer]. Thrive Questionnaire Date Thrive assessed: 05/16/24 I am a: Patient What is your living situation today?: I have a steady place to live Within the past 12 months, did the food you bought not last and you didn't have the money to get more?: I choose not to answer this question Within the past 12 months, did you worry whether your food would run out before you got money to buy more?: I choose not to answer this question Do you have trouble paying for medicines?: I choose not to answer this question Do you have trouble getting transportation to medical appointments?: I choose not to answer this question Do you have trouble paying your heating and electricity bill?: I choose not to answer this question Do you have trouble taking care of your child, family member or friend?: I choose not to answer this question Do you have trouble with day-to-day activities such as bathing, preparing meals, shopping, managing finances, etc.?: I choose not to answer this question Are you currently unemployed and looking for a job?: I choose not to answer this question Are you interested in more education?: I choose not to answer this question Please select the resources that you would like help with: None Currently or been in a relationship where the following occur: I choose not to answer THRIVE Score: 0 AUDIT C Alcohol Use Questionnaire (AUDIT-C) 1. How often do you have a drink containing alcohol?: Monthly or less 2. How many drinks containing alcohol do you have on a typical day when you are drinking?: 1 or 2 3. How often do you have six or more drinks on one occasion?: Never Total Score: 1 YVONNE-7 AMB Questionnaire YVONNE-7 Date YVONNE - 7 assessed: 05/16/24 Feeling nervous, anxious, or on edge: 0 = Not at all Not being able to stop or control worryin = Not at all Worrying too much about different things: 0 = Not at all Trouble relaxin = Not at all Being so restless that it is hard to sit still: 0 = Not at all Becoming easily annoyed or irritable: 0 = Not at all Feeling afraid as if something awful might happen: 0 = Not at all Total YVONNE-7 score (0-4 normal; 5-9 mild; 10-14 moderate; 15-21 severe): 0 Source: Developed by Drs. Tommie Kay, Mary Kay Curran, Clifford Armenta and colleagues, with an educational deanna from [employer]. Review of Systems Const Denies body aches, Denies chills, Denies fever(s) and Denies poor appetite Eyes Reports no additional complaints ENT Reports no additional complaints Card Denies chest pain, Denies lightheadedness and Denies dyspnea Resp Denies cough and Denies dyspnea GI Reports no additional complaints Reports no additional complaints Musc Reports no additional complaints and Denies abnormal gait Skin/Breast Reports system reviewed and no additional complaints, except as documented Neuro Denies abnormal gait Psych Reports no additional complaints Physical exam (Primary Care) Vital Signs: Last Vital Signs Temp 97.1 F 05/16/24 11:03 Pulse 99 05/16/24 11:03 BP 130/70 05/16/24 11:03 Pulse Ox 97 05/16/24 11:03 Oxygen Delivery Method Room Air 05/16/24 11:03 BMI result Body Mass Index 27.1 Tobacco/Smoking Status: Tobacco use Status Tobacco use date assessed 05/16/24 05/16/24 11:03 Patient Tobacco Use Status Former Tobacco user 05/16/24 11:03 Tobacco use type Cigarette 05/16/24 11:03 e-Cigarette/Vaping Use Never Used 05/16/24 11:03 PHQ-9: PHQ-9 Score PHQ-9: Total score 0 05/16/24 11:46 Depression Screening Interpretation: Negative Thrive Assessment: Date of Thrive Assessment Date Thrive assessed 05/16/24 05/16/24 11:03 Currently or been in a relationship where the following occur: I choose not to answer Const General: cooperative, healthy appearing, comfortable and no acute distress Orientation/consciousness: patient oriented x3 HENMT Head: Yes normocephalic Ears: hearing grossly normal bilaterally General nose exam: Normal external nose present Eyes General: appearance normal, both eyes and all related structures Conjunctivae: conjunctivae normal Neck Neck: Yes full ROM and Yes no lymphadenopathy Resp Effort & Inspection: normal respiratory effort Auscultation: clear to auscultation bilaterally, no crackles, no rales, no rhonchi and no wheezes Cardio Rate: regular rate Rhythm: regular rhythm Skin General skin exam: no rashes or lesions noted Neuro General: patient oriented x3 Gait exam (Neuro): Normal gait present Extrem General: Yes normal to inspection, Yes full ROM and No edema Hand/finger images: 2 1. Laceration without active bleed or drainage with surrounding erythema and scant yellow discharge. No areas of raw skin- edges not well-approximated Psych Affect: normal affect Attitude: cooperative Insight: Good insight present (Psych) Judgement: Good judgement present (Psych) Immunizations Boostrix Tdap 2.5 Lf unit-8 mcg-5 Lf/0.5 mL intramuscular syringe Performing Provider: Michela Larsen PA-C [place] [facility] [place] [facility] Administered by: JOEL Gu on 05/16/24 11:45 2 Dose Route Admin Location Dispensed Lot Number Expiration Date [facility] [place] [employer] 0.5 mL IM Left Deltoid 0.5 mL [id number] 07/05/26 [id number] [employer] 2 VIS Given Date VIS Provided VIS Publication Date 05/16/24 Single Vaccine 20 Eligibility Eligibility Date Funding Source Not [facility] Eligible 05/16/24 Private Coding Level of Care Code Est Pt Level 3 (78359) Diagnoses Laceration of right little finger without foreign body without damage to nail, subsequent encounter S61.216D Encounter type: subsequent encounter Finger: little finger Damage to nail status: without damage Foreign body presence: without foreign body Laterality: right Assessment & Plan Assessment & Plan (1) Finger laceration: Code(s): S61.219A - Laceration without foreign body of unspecified finger without damage to nail, initial encounter Category: Medical Qualifiers: Encounter type: subsequent encounter Finger: little finger Damage to nail status: without damage Foreign body presence: without foreign body L aterality: right Qualified Code(s): S61.216D - Laceration without foreign body of right little finger without damage to nail, subsequent encounter Plan: On exam today wound is incompletely healed however no areas of open/raw skin. There is surrounding erythema and scant yellow discharge around the wound consistent with infection. Edges of the wound are not well approximated however given the infection we are unable to close the laceration completely. There is scabbing and no areas of raw skin likely this wound will not open further. Sent antibiotic to be taken twice daily for 5 days and advised patient to reach out if symptoms do not improve or worsen. Patient also states she has history of yeast infections with the use of antibiotics so topical miconazole we will be sent to pharmacy. Wound was dressed today using bacitracin and nonadherent pad to prevent contamination. I did advise the patient to remove this bandage and do keep the area clean and dry over the next several days. Wound can be covered if there is risk for contamination but then removed promptly after. Patient was not given tetanus vaccine at the urgent care where she was seen. Tdap was given today. Plan This note was constructed using voice recognition software. While every effort has been made to ensure accuracy and vending machine attendant, still areas may have been included sometimes these areas may affect the content or meeting of the given symptoms. Total time spent caring for the patient today was 20 minutes. This includes time spent before the visit reviewing the chart, time spent during the visit, and time spent after the visit and documentation. Orders: Orders 2 TDaP Immunization Today Z23 - Encounter for immunization Medications: New 2 doxycycline hyclate 100 mg PO BID 10 tabs 0RF 5 days miconazole nitrate put 1 supp in vagina at bedtime x 3nites;use cream on area outside vagina 2X/day for up to 7days vaginal 24 grams 0RF
[2024-05-16 11:03] VITALS: BP 130/70; PULSE 99; TEMP 36.2; O2SAT 97; BMI 27.1
== END 2024-05-16 11:48 | disposition home or self-care (01) ==
PROVIDERS: PCP Internal Medicine
DX: S61.216D Laceration without foreign body of right little finger without damage to nail, subsequent encounter (principal); Z23 Encounter for immunization

== ENCOUNTER → 2024-05-16 10:53 | Outpatient (BNVA) | payer OTHER, SELFPAY | PROVIDERS: PCP Internal Medicine | DX: S61.216D Laceration without foreign body of right little finger without damage to nail, subsequent encounter (principal); X58.XXXD Exposure to other specified factors, subsequent encounter; Z23 Encounter for immunization | CPT/HCPCS: 90471; 90715; 99212 ==

== ENCOUNTER 2024-06-02 11:06 | Outpatient (AMB) | payer OTHER, SELFPAY ==
[2024-06-02 11:18] VITALS: BP 118/72; PULSE 110; O2SAT 97; BMI 27.0
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
== END 2024-06-02 11:58 | disposition home or self-care (01) ==
PROVIDERS: PCP Internal Medicine; Visit Provider Internal Medicine
DX: Z00.00 Encounter for general adult medical examination without abnormal findings (principal); I10 Essential (primary) hypertension; R73.02 Impaired glucose tolerance (oral); E78.00 Pure hypercholesterolemia, unspecified; G40.209 Localization-related (focal) (partial) symptomatic epilepsy and epileptic syndromes with complex partial seizures, not intractable, without status epilepticus; J44.9 Chronic obstructive pulmonary disease, unspecified; M85.80 Other specified disorders of bone density and structure, unspecified site; F31.62 Bipolar disorder, current episode mixed, moderate; F98.8 Other specified behavioral and emotional disorders with onset usually occurring in childhood and adolescence; H91.90 Unspecified hearing loss, unspecified ear; N30.10 Interstitial cystitis (chronic) without hematuria; Z23 Encounter for immunization

== ENCOUNTER → 2024-06-02 11:06 | Outpatient (BNVA) | payer OTHER, SELFPAY | PROVIDERS: PCP Internal Medicine; Visit Provider Internal Medicine | DX: Z00.00 Encounter for general adult medical examination without abnormal findings (principal); I10 Essential (primary) hypertension; Z23 Encounter for immunization; R73.02 Impaired glucose tolerance (oral); E78.00 Pure hypercholesterolemia, unspecified; G40.209 Localization-related (focal) (partial) symptomatic epilepsy and epileptic syndromes with complex partial seizures, not intractable, without status epilepticus; J44.9 Chronic obstructive pulmonary disease, unspecified; M85.80 Other specified disorders of bone density and structure, unspecified site; F31.62 Bipolar disorder, current episode mixed, moderate; F98.8 Other specified behavioral and emotional disorders with onset usually occurring in childhood and adolescence; H91.90 Unspecified hearing loss, unspecified ear; N30.10 Interstitial cystitis (chronic) without hematuria | CPT/HCPCS: 90471; 90656; 96127; 99396 ==

== ENCOUNTER 2024-09-18 14:07 | Outpatient (REF) | payer OTHER, SELFPAY | END 2024-09-18 14:08 | disposition home or self-care (01) | LOC: HO.MAMMO 14:07 | PROVIDERS: PCP Internal Medicine; Visit Provider Internal Medicine | DX: Z12.31 Encounter for screening mammogram for malignant neoplasm of breast (principal) | CPT/HCPCS: 77063; 77067 ==

== ENCOUNTER → 2024-09-18 14:15 | Outpatient (BNV) | payer OTHER, SELFPAY | PROVIDERS: PCP Internal Medicine; Visit Provider Internal Medicine | DX: Z12.31 Encounter for screening mammogram for malignant neoplasm of breast (principal) | CPT/HCPCS: 77063; 77067 ==

== ENCOUNTER 2024-09-27 09:02 | Outpatient (REF) | payer OTHER, SELFPAY | END 2024-09-27 09:03 | disposition home or self-care (01) | LOC: HO.SH 09:02 | PROVIDERS: Visit Provider Internal Medicine | DX: Z01.118 Encounter for examination of ears and hearing with other abnormal findings (principal); H93.293 Other abnormal auditory perceptions, bilateral | CPT/HCPCS: 92557; 92567 ==

== ENCOUNTER 2024-12-29 08:29 | Outpatient (AMB) | payer OTHER, SELFPAY ==
[2024-12-29 08:32] VITALS: BP 136/70; PULSE 100; O2SAT 98; BMI 27.6
--- NOTE | 2024-12-29 08:32 | MHC.PC.OV ---
Vital Signs 12/29/24 08:32 Height 5 ft 1 in Weight 146 lb BMI 27.6 BP 136/70 Blood Pressure Location Lt brachial Position Sitting Pulse 100 Pulse Source Pulse Oximeter Pulse Oximetry (%) 98 Oxygen Delivery Method Room Air Intake Visit Reasons: asthma seizure Allergies lamotrigine Allergy (Intermediate, Verified 12/29/24 08:32) Migraine spider venom (spider bites) Allergy (Intermediate, Verified 12/29/24 08:32) reaction to skin Medication List - Last Reconciled 12/29/24 by Andie Scott MD albuterol sulfate 2.5 mg (3 mL) inhalation QID PRN aripiprazole (Abilify) 5 mg PO DAILY blood pressure monitor (Blood Pressure Kit) As directed buprenorphine-naloxone 8-2 mg Clean slate cyxfjirkjv-crefnsumlverb-yuln 50-300-40 mg 1 cap PO TID PRN clonazepam [facility] dextroamphetamine-amphetamine 20 mg 1 tab PO DAILY diclofenac sodium 1% 4 grams topical QID fluoxetine mg PO DAILY fluticasone propion-salmeterol 230-21 mcg/actuation (Advair HFA) 2 puffs inhalation Q12H 30 days gabapentin 800 mg PO TID lisinopril 5 mg PO DAILY nebulizers (Aeroneb Go Nebulizer) As directed oxcarbazepine 600 mg PO BID umeclidinium 62.5 mcg/actuation (Incruse Ellipta) 1 inh inhalation BEDTIME Ventolin HFA 90 mcg/actuation (albuterol sulfate) 2 puffs PO Q4-6H PRN NS Tobacco use date assessed: 05/16/24 Dental Screening Dental Screen Date: 12/29/24 Did you have a dental visit in the last 12 months?: No Did you have a dental problem in the last 6 months where you did not have access to dental care?: No Was dental information given to patient?: No HPI asthma seizure HPI Details 2 weeks L shoulder pain ? 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 Father No problems noted. Sister No problems noted. Sister No problems noted. Sister No problems noted. Brother No problems noted. Brother Diabetes Daughter No problems noted. Daughter No problems noted. Daughter No problems noted. Son No problems noted. Maternal Grandfather Heart attack Paternal Grandfather Heart attack Maternal Grandmother Heart attack Paternal Grandmother Lung cancer Other Mental health disorder Social History (Updated 06/02/24 @ 11:32 by Andie Scott MD) Housing: House Alcohol intake: current Alcohol intake frequency: holidays/special occasions only Comment: once Q 3 months 1-2 drinks Patient Tobacco Use Status: Former Tobacco user Tobacco use type: Cigarette Cigarettes Per Day: 10 Years Smoked: quit 2021 e-Cigarette/Vaping Use: Never Used Second Hand Smoke Exposure: Yes service: No Current occupational status: disabled Cognitive needs: No Hearing needs: No Vision needs: Yes Questionnaire PHQ-9 Over the last 2 weeks, how often have you been bothered by any of the following problems? 1. Little interest or pleasure in doing things: nearly every day 2. Feeling down, depressed, or hopeless: nearly every day 3. Trouble falling or staying asleep, or sleeping too much: nearly every day 4. Feeling tired or having little energy: nearly every day 5. Poor appetite or overeating: nearly every day 6. Feeling bad about yourself - or that you are a failure or have let yourself or your family down: nearly every day 7. Trouble concentrating on things, such as reading the newspaper or watching television: nearly every day 8. Moving or speaking so slowly that other people could have noticed. Or the opposite - being so fidgety or restless that you have been moving around a lot more than usual: nearly every day 9. Thoughts that you would be better off or of hurting yourself in some way: more than half the days Total score: 26 Depression Screening Interpretation: Positive Depression Screening Done: Yes Source: Developed by Drs. Tommie Kay, Mary Kay Curran, Clifford Armenta and colleagues, with an educational deanna from [employer]. Thrive Questionnaire Date Thrive assessed: 06/02/24 I am a: Patient What is your living situation today?: I do not have a steady places to live I am temporarily staying with others Within the past 12 months, did the food you bought not last and you didn't have the money to get more?: Sometimes True Within the past 12 months, did you worry whether your food would run out before you got money to buy more?: Sometimes True Do you have trouble paying for medicines?: I choose not to answer this question Do you have trouble getting transportation to medical appointments?: Yes Do you have trouble paying your heating and electricity bill?: I choose not to answer this question Do you have trouble taking care of your child, family member or friend?: No Do you have trouble with day-to-day activities such as bathing, preparing meals, shopping, managing finances, etc.?: Yes Are you currently unemployed and looking for a job?: No Are you interested in more education?: No Currently or been in a relationship where the following occur: No concerns reported THRIVE Score: 4 AUDIT C Alcohol Use Questionnaire (AUDIT-C) 1. How often do you have a drink containing alcohol?: Never 3. How often do you have six or more drinks on one occasion?: Never Total Score: 0 YVONNE-7 AMB Questionnaire YVONNE-7 Date YVONNE - 7 assessed: 06/02/24 Source: Developed by Drs. Tommie Kay, Mary Kay Curran, Clifford Armenta and colleagues, with an educational deanna from [employer]. Physical exam (Primary Care) Vital Signs: Last Vital Signs Pulse 100 12/29/24 08:32 BP 136/70 12/29/24 08:32 Pulse Ox 98 12/29/24 08:32 Oxygen Delivery Method Room Air 12/29/24 08:32 BMI result Body Mass Index 27.6 Tobacco/Smoking Status: Tobacco use Status Tobacco use date assessed 05/16/24 12/29/24 08:36 Patient Tobacco Use Status Former Tobacco user 12/29/24 08:36 Tobacco use type Cigarette 12/29/24 08:36 e-Cigarette/Vaping Use Never Used 12/29/24 08:36 PHQ-9: PHQ-9 Score PHQ-9: Total score 26 12/29/24 08:40 Depression Screening Interpretation: Positive Thrive Assessment: Date of Thrive Assessment Date Thrive assessed 06/02/24 12/29/24 08:36 Currently or been in a relationship where the following occur: No concerns reported Const General: alert; No acute distress Eyes Conjunctivae: conjunctivae normal Resp Auscultation: clear to auscultation bilaterally Cardio Rate: regular rate Rhythm: regular rhythm GI Inspection: Yes normal to inspection Extrem General: Yes normal to inspection and No edema Coding Level of Care Code Est Pt Level 4 (85374) Complex EM visit Add On G2211 Diagnoses Bipolar disorder, current episode mixed, moderate F31.62 Active/Remission status: currently active Current bipolar episode type: mixed Current episode severity: moderate Hypertension I10 Hypercholesterolemia E78.00 Impaired glucose tolerance R73.02 COPD (chronic obstructive pulmonary disease) J44.9 Folic acid deficiency E53.8 Tobacco use Z72.0 Shoulder pain, left M25.512 Costochondritis M94.0 Assessment & Plan Assessment & Plan (1) Bipolar disorder: Comment: [facility] Code(s): F31.9 - Bipolar disorder, unspecified Category: Medical Qualifiers: Active/Remission status: currently active Current bipolar episode type: mixed Current episode severity: moderate Qualified Code(s): F31.62 - Bipolar disorder, current episode mixed, moderate Plan: Continue with counseling and therapy on Abilify clonazepam fluoxetine oxcarbazepine (2) Hypertension: Code(s): I10 - Essential (primary) hypertension Category: Medical Plan: Continue with blood pressure medication. Decrease salt intake and exercise patient is on lisinopril 5 mg once a day (3) Hypercholesterolemia: Code(s): E78.00 - Pure hypercholesterolemia, unspecified Category: Medical Plan: Avoid fried foods, chicken skin, eggs, butter margarine, pastries and meat. Be it pork or beef they have a lot of cholesterol LDL goal of less than 130 and triglyceride of less than 150. Patient is advised to repeat the blood work and then discussed about treatment (4) Impaired glucose tolerance: Code(s): R73.02 - Impaired glucose tolerance (oral) Category: Medical Plan: Decrease the amount of carbohydrate intake, pasta, bread, rice and potatoes are all sugar and that is aside from all the sweet stuff, remember that fruits are good but they are Sweet also. (5) COPD (chronic obstructive pulmonary disease): Code(s): J44.9 - Chronic obstructive pulmonary disease, unspecified Category: Medical Plan: Patient on albuterol inhaler and Advair (6) Folic acid deficiency: Code(s): E53.8 - Deficiency of other specified B group vitamins Category: Medical Plan: Discussed about folic acid 1 mg once a day (7) Tobacco use: Comment: stopped 2022, lives with smoker Code(s): Z72.0 - Tobacco use Category: Social Hx (8) Shoulder pain, left: Code(s): M25.512 - Pain in left shoulder Category: Medical (9) Costochondritis: Code(s): M94.0 - Chondrocostal junction syndrome [Tietze] Category: Medical Plan History of Present Illness The patient is a 49-year-old female presenting for a follow-up visit and physical examination. She has a history of bipolar disorder, managed with Abilify, clonazepam, fluoxetine, and oxcarbazepine. The patient also has Chronic Obstructive Pulmonary Disease (COPD), using an albuterol inhaler and Advair. Osteopenia was noted with the last bone density test in September 2021. She also has a seizure disorder, hypercholesterolemia, hypertension, impaired glucose tolerance, and interstitial cystitis. Her last blood work in July showed elevated cholesterol, mildly elevated blood sugar, low vitamin D, and low folate levels. The patient reports shoulder pain, possibly related to a seizure episode, with difficulty lifting her arm. She is concerned about a potential rotator cuff injury due to family history. Additionally, she reports arthritis flare-ups and intermittent chest pain, not associated with exertion or palpation. Health Maintenance - Mammogram and Cologuard test are up to date - Discussion about shingles vaccination, available at the pharmacy - Up to date with tetanus and pneumonia vaccinations - Advised to repeat blood work for cholesterol management Social History - Former smoker, quit approximately two years ago - Lives with someone who smokes, leading to secondhand smoke exposure Review of Systems - Musculoskeletal: Reports shoulder pain and arthritis flare-ups - Cardiovascular: Reports intermittent chest pain, denies exertional pain - Respiratory: Denies current smoking, reports past smoking history Physical Exam - Musculoskeletal: Pain noted upon lifting and moving the shoulder, particularly in the back area - Respiratory: Breath sounds assessed during breathing exercises Results - Labs: Elevated cholesterol, mildly elevated blood sugar, low vitamin D, low folate (July blood work) Plan Patient was informed and verbally consented to the use of an ambient scribe for clinic note documentation during this visit. 1. Bipolar Disorder The patient will continue with current medications including Abilify, clonazepam, fluoxetine, and oxcarbazepine, and maintain regular counseling and therapy sessions. 2. Chronic Obstructive Pulmonary Disease (Copd) The patient is advised to continue using the albuterol inhaler and Advair as prescribed. 3. Osteopenia The patient should follow up with bone density monitoring as previously scheduled. 4. Hypercholesterolemia The patient is advised to repeat blood work to monitor cholesterol levels and discuss further management options. 5. Hypertension The patient is currently on lisinopril 5 mg once daily for blood pressure management. 6. Impaired Glucose Tolerance The patient is advised to repeat blood work to assess glucose levels and discuss potential treatment options. 7. Shoulder Pain The patient will undergo an x-ray and start physical therapy to address shoulder pain, with an MRI considered if symptoms persist. 8. Arthritis The patient is prescribed medication to manage arthritis pain, to be taken with food as needed. 9. Chest Pain An EKG will be performed to evaluate chest pain, and the patient is advised to monitor symptoms. Discussion Notes During the visit, I discussed the importance of managing cholesterol levels due to the patient's elevated readings, emphasizing the risk of cardiovascular disease. I advised repeating blood work to reassess cholesterol and glucose levels. We also discussed the potential need for physical therapy and imaging for shoulder pain management. I recommended continuing current medications for bipolar disorder and COPD management. The patient was informed about the availability of the shingles vaccine at the pharmacy and the importance of maintaining up-to-date vaccinations. Patient Instructions - Continue taking prescribed medications for bipolar disorder and COPD. - Schedule and complete blood work for cholesterol and glucose monitoring. - Begin physical therapy for shoulder pain and follow up with an x-ray. - Consider getting the shingles vaccine at the pharmacy. - Monitor chest pain and report any changes. Orders: Orders Free T4 (Free Thyroxine) Today E53.8 - Deficiency of other specified B group vitamins XR shoulder LT min 2V Today M25.512 - Pain in left shoulder ECG 12 lead EKG Today M25.512 - Pain in left shoulder Vitamin B12 and Folate Today E53.8 - Deficiency of other specified B group vitamins Vitamin D 25-OH Total Today E53.8 - Deficiency of other specified B group vitamins Comprehensive Met. Panel Today E53.8 - Deficiency of other specified B group vitamins Hemoglobin A1c Today E53.8 - Deficiency of other specified B group vitamins Lipid Panel Today E53.8 - Deficiency of other specified B group vitamins, E78.00 - Pure hypercholesterolemia, unspecified Thyroid Stimulating Hormone Today E53.8 - Deficiency of other specified B group vitamins PT Evaluation and Treatment Today M25.512 - Pain in left shoulder Medications: New meloxicam 15 mg PO DAILY 30 tabs 0RF M25.512 - Pain in left shoulder
== END 2024-12-29 08:59 | disposition home or self-care (01) ==
LOC: HO.HMCH 08:30
PROVIDERS: PCP Internal Medicine; Visit Provider Internal Medicine
DX: J44.9 Chronic obstructive pulmonary disease, unspecified (principal); F31.62 Bipolar disorder, current episode mixed, moderate; I10 Essential (primary) hypertension; E78.00 Pure hypercholesterolemia, unspecified; R73.02 Impaired glucose tolerance (oral); E53.8 Deficiency of other specified B group vitamins; Z72.0 Tobacco use; M25.512 Pain in left shoulder; M94.0 Chondrocostal junction syndrome [Tietze]

== ENCOUNTER → 2024-12-29 08:29 | Outpatient (BNVA) | payer OTHER, SELFPAY | PROVIDERS: PCP Internal Medicine; Visit Provider Internal Medicine | DX: Z00.00 Encounter for general adult medical examination without abnormal findings (principal); F31.62 Bipolar disorder, current episode mixed, moderate; I10 Essential (primary) hypertension; E78.00 Pure hypercholesterolemia, unspecified; R73.02 Impaired glucose tolerance (oral); J44.9 Chronic obstructive pulmonary disease, unspecified; E53.8 Deficiency of other specified B group vitamins; M25.512 Pain in left shoulder; M94.0 Chondrocostal junction syndrome [Tietze]; R07.9 Chest pain, unspecified; M85.80 Other specified disorders of bone density and structure, unspecified site; F17.210 Nicotine dependence, cigarettes, uncomplicated; Z79.899 Other long term (current) drug therapy | CPT/HCPCS: 99212 ==

== ENCOUNTER 2025-01-03 08:15 | Outpatient (REF) | payer OTHER, SELFPAY ==
--- NOTE | ~2025-01-03 | XR_ITS ---
EXAMINATION: XR SHOULDER, LEFT CLINICAL INFORMATION: M25.512 - Pain in left shoulder COMPARISON: None available. TECHNIQUE: AP external rotation, Grashey, scapular Y, and axillary views of the left shoulder. FINDINGS: Normal bone mineralization. No fracture, dislocation, or suspicious bone lesion. Normal alignment. The glenohumeral joint is normal. The AC joint is normal. There is a type II acromion. No undersurface spurring. The subacromial space is preserved. Remainder of the soft tissue and bony structures appear normal. XR/XR shoulder LT min 2V IMPRESSION: Normal left shoulder. Electronically signed by: Johnathon Valerio MD 01/03/2025 08:50 AM EDT RP
--- NOTE | 2025-01-03 08:19 | ECG_ITS ---
Test Reason : LEFT SHOULDER PAIN Blood Pressure : */* mmHG Vent. Rate : 73 BPM Atrial Rate : 73 BPM P-R Int : 184 ms QRS Dur : 86 ms QT Int : 406 ms P-R-T Axes : 72 59 38 degrees QTcB Int : 447 ms Normal sinus rhythm Normal ECG When compared with ECG of 01-May-2019 11:29, No significant change was found Referred By: Andie Scott Electronically Signed By: TARA TY
[2025-01-03 09:22] LABS: Hemoglobin A1C 128.3138 umol/L; Total Hemoglobin (HGBA1C) 3439.4997 umol/L
[2025-01-03 09:45] LABS: Alanine Aminotransferase 26 U/L (0-31); Albumin Level 4.6 g/dL (3.5-5.0); Alkaline Phosphatase 77 U/L (39-117); Anion Gap 11 (12-20); Aspartate Amino Transferase 28 U/L (5-31); Blood Urea Nitrogen 15 mg/dL (9-16); Calcium 9.1 mg/dL (8.4-10.2); Carbon Dioxide 26 mmol/L (22-29); Chloride 107 mmol/L (96-108); Cholesterol 284 mg/dL (<200); Estimated Glomerular Filt Rate > 60; HDL Cholesterol 33 mg/dL (>40); Potassium 4.5 mmol/L (3.3-5.1); Sodium 139 mmol/L (135-145); Total Protein 7.3 g/dL (6.5-8.0); Triglycerides 294 mg/dL (<150)
[2025-01-03 10:04] LABS: Free T4 (Free Thyroxine) 0.91 ng/dL (0.71-1.85); Thyroid Stimulating Hormone 2.37 uIU/mL (0.32-4.0)
[2025-01-03 10:13] LABS: Folate > 20.0 ng/mL (> or = 4.0); Vitamin B12 404 pg/mL (200-900)
== END 2025-01-03 08:16 | disposition home or self-care (01) ==
LOC: HO.XRAY 08:15
PROVIDERS: PCP Internal Medicine; Visit Provider Internal Medicine
DX: N30.10 Interstitial cystitis (chronic) without hematuria (principal); R39.15 Urgency of urination; R35.0 Frequency of micturition; R35.1 Nocturia; M25.512 Pain in left shoulder; E78.00 Pure hypercholesterolemia, unspecified
CPT/HCPCS: 36415; 51798; 73030; 80053; 80061; 81003; 82306; 82607; 82746; 83036; 84439; 84443; 93005; 99202

== ENCOUNTER → 2025-01-03 08:19 | Outpatient (BNV) | payer OTHER, SELFPAY | PROVIDERS: PCP Internal Medicine; Visit Provider Internal Medicine | DX: M25.512 Pain in left shoulder (principal) | CPT/HCPCS: 93010 ==

== ENCOUNTER → 2025-01-03 08:38 | Outpatient (BNV) | payer OTHER, SELFPAY | PROVIDERS: PCP Internal Medicine; Visit Provider Radiology Diagnostic Radiology | DX: M25.512 Pain in left shoulder (principal) | CPT/HCPCS: 73030 ==

== ENCOUNTER 2025-01-03 08:51 | Outpatient (AMB) | payer OTHER, SELFPAY ==
--- NOTE | 2025-01-03 08:53 | MHC.OFFVIS ---
Intake Visit Reasons: interstitial cystitis Intake Note: Patient is present for INTERSTITIAL CYSTITIS Urology Medication:NONE Antibiotic Allergy:NONE Blood Thinner:NONE TODAY'S PVR:0ML'S Airline Ticket Agent Required: No Allergies lamotrigine Allergy (Intermediate, Verified 01/03/25 08:54) Migraine spider venom (spider bites) Allergy (Intermediate, Verified 01/03/25 08:54) reaction to skin HPI Comments Details: Linda is a pleasant 49-year-old female patient of Dr. Scott. She has a past medical history of seizures/epilepsy, age-related osteoporosis, low-back pain, cervical dysplasia follows Dr. Leigh, migraines, asthma, nicotine dependence quit 07/2021, polysubstance abuse, attention deficit disorder, and bipolar disorder. She presents to the office today as a new patient for interstitial cystitis. In discussion with the patient today she reports previously following up with [facility] many years ago and was diagnosed with interstitial cystitis. She reports previously having trialed Elmiron in did not feel this was helpful. She has not followed up with Urology for many years however feels she would like to establish urological care. She discusses her most bothersome urinary issue is nocturia. She reports getting up a proximally 5 times per night. She also reports noting episodes of urinary urgency and frequency throughout the day. In office urinalysis results reviewed with the patient today. We did discussed at length potential causes and further treatment options of interstitial cystitis. She denies incontinence, hematuria, foul smelling urine, changes to urinary stream, flank pain, fever, and or chills. All questions were answered. She otherwise offers no other issues or concerns at this time. 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 Father No problems noted. Sister No problems noted. Sister No problems noted. Sister No problems noted. Brother No problems noted. Brother Diabetes Daughter No problems noted. Daughter No problems noted. Daughter No problems noted. Son No problems noted. Maternal Grandfather Heart attack Paternal Grandfather Heart attack Maternal Grandmother Heart attack Paternal Grandmother Lung cancer Other Mental health disorder Social History (Updated 06/02/24 @ 11:32 by Andie Scott MD) Housing: House Alcohol intake: current Alcohol intake frequency: holidays/special occasions only Comment: once Q 3 months 1-2 drinks Patient Tobacco Use Status: Former Tobacco user Tobacco use type: Cigarette Cigarettes Per Day: 10 Years Smoked: quit 2021 e-Cigarette/Vaping Use: Never Used Second Hand Smoke Exposure: Yes service: No Current occupational status: disabled Cognitive needs: No Hearing needs: No Vision needs: Yes Review of Systems Const All systems reviewed & are unremarkable except as noted in HPI and below Physical Exam Const General: cooperative, healthy appearing, comfortable, no acute distress, well developed, alert and awake Orientation/consciousness: patient oriented x3 Limitations: no limitations HEENT Head: Yes normal to inspection, Yes normocephalic and Yes atraumatic Ears: hearing grossly normal bilaterally Eyes General: appearance normal, both eyes and all related structures Neck Neck: Yes normal visual inspection and Yes trachea midline Chest Chest palpation & inspection: normal inspection of the chest Resp Effort & Inspection: normal respiratory effort and able to speak in complete sentences Cardio Rate: regular rate GI Inspection: Yes normal to inspection General: Yes no CVA tenderness Back/Spine/Pelvis Back: no CVA tenderness Skin General skin exam: no rashes or lesions noted Neuro General: patient oriented x3 Extrem General: Yes normal to inspection Psych Appearance: grossly normal and well kempt Mental Status: mental status grossly normal Speech and movement: Normal speech and movement present and Clear speech present Affect: normal affect Attitude: cooperative Thought process: Normal thought process present Thought content: Normal thought content present Insight: Fair insight present (Psych) Judgement: Fair judgement present (Psych) Office Procedures Post Void Residual Post Residual Void Post Void Residual (PVR): 0 [id number]-[id number] Void Residual by ultrasound Results AMB Urinalysis, Automated UA Leukoctes 0 Pepito/uL Last Edit by ERIC Hawkins on 01/03/25 09:05 UA Nitrite Negative Last Edit by Barb Pratt [facility] on 01/03/25 09:05 UA Urobilinogen 0.2 mg/dL Last Edit by Barb Pratt [facility] on 01/03/25 09:05 UA Protein 15 mg/dL Last Edit by Barb Pratt [facility] on 01/03/25 09:05 UA pH 6.0 Last Edit by Barb Pratt [facility] on 01/03/25 09:05 UA Blood 0 Honorio/uL Last Edit by Barb Pratt [facility] on 01/03/25 09:05 UA Specific [place] 1.030 Last Edit by Barb Pratt [facility] on 01/03/25 09:05 UA Ketone Negative Last Edit by Barb Pratt [facility] on 01/03/25 09:05 UA Bilirubin 0 mg/dL Last Edit by Barb Pratt [facility] on 01/03/25 09:05 UA Glucose 0 mg/dL Last Edit by Barb Pratt [facility] on 01/03/25 09:05 Results Reviewed Results Reviewed: Laboratory Last Values Urine pH (Auto) 6.0 01/03/25 09:05 Specific [place] (Auto) 1.030 01/03/25 09:05 Urine Protein (Auto) 15 mg/dL 01/03/25 09:05 Glucose (UA)(Auto) 0 mg/dL 01/03/25 09:05 Urine Ketones (Auto) Negative 01/03/25 09:05 Urine Blood (Auto) 0 Honorio/uL 01/03/25 09:05 Urine Nitrite (Auto) Negative 01/03/25 09:05 Urine Bilirubin (Auto) 0 mg/dL 01/03/25 09:05 Urine Urobilinogen (Auto) 0.2 mg/dL 01/03/25 09:05 Leukocyte Esterase (Auto) 0 Pepito/uL 01/03/25 09:05 Assessment & Plan Assessment & Plan (1) Lower urinary tract symptoms: Code(s): R39.9 - Unspecified symptoms and signs involving the genitourinary system Category: Medical (2) Urinary urgency: Code(s): R39.15 - Urgency of urination Category: Medical (3) Urinary frequency: Code(s): R35.0 - Frequency of micturition Category: Medical (4) Nocturia: Code(s): R35.1 - Nocturia Category: Medical (5) Interstitial cystitis: Code(s): N30.10 - Interstitial cystitis (chronic) without hematuria Category: Medical Plan In office urinalysis results reviewed the patient today; as noted above; will send for urine cytology. PVR 0 mL We discussed at length potential causes of interstitial cystitis as well as further treatment options and risks and benefits of these treatment options. All questions were answered. We discussed bladder triggers and irritants. Will obtain retroperitoneal ultrasound for further assessment evaluation. Start Cialis as discussed and prescribed. Follow-up in 3 months with imaging and PVR; or sooner with any issues, concerns, and or questions. Orders: Orders Urine Cytology Today N30.10 - Interstitial cystitis (chronic) without hematuria AMB Urinalysis Automated Today Z13.9 - Encounter for screening, unspecified US retroperitoneal comp Today N30.10 - Interstitial cystitis (chronic) without hematuria, R35.0 - Frequency of micturition, R35.1 - Nocturia, R39.15 - Urgency of urination, R39.9 - Unspecified symptoms and signs involving the genitourinary system Medications: New tadalafil (Cialis) [id number] [facility] [id number] Member [id number] 5 mg PO DAILY 90 tabs 1RF 90 days Patient Instructions: The patient had an opportunity to ask questions regarding the treatment plan. All questions were answered. Physical exam, labs, and imaging were discussed and reviewed in detail. As well as risks, benefits, and discussion of treatment choices. No major barriers to understanding were identified. The patient expressed understanding and agreement with the above treatment plan. The patient was made aware they should contact our office by phone for worsening of their current condition, the appearance of new symptoms, or with any questions or concerns. Compliance is encouraged with any medications and follow up testing that is ordered. It is a privilege to be allowed the opportunity to participate in? your urological care.? Again, if you have any questions or concerns If you have any questions or concerns please do not hesitate to contact me. The office is [phone]. This note is constructed using voice recognition software. While every effort has been made to ensure accuracy new car driver errors may have been included. Yours sincerely, LUIS Rodas Coding Level of Care Code New Pt Level 4 (62748) Diagnoses Lower urinary tract symptoms R39.9 Urinary urgency R39.15 Urinary frequency R35.0 Nocturia R35.1 Interstitial cystitis N30.10 CPT Codes Post Residual Void - PVR CPT Code: 58061-Dtpe Void Residual by ultrasound ([id number])
== END 2025-01-03 09:32 | disposition home or self-care (01) ==
LOC: HO.HUSH 08:52
PROVIDERS: PCP Internal Medicine; Visit Provider Nurse Practitioner Family
DX: R39.9 Unspecified symptoms and signs involving the genitourinary system (principal); R39.15 Urgency of urination; R35.0 Frequency of micturition; R35.1 Nocturia; N30.10 Interstitial cystitis (chronic) without hematuria; Z13.9 Encounter for screening, unspecified
CPT/HCPCS: 99204

== ENCOUNTER 2025-01-03 09:31 | Outpatient (REF) | payer OTHER, SELFPAY | END 2025-01-03 09:32 | disposition home or self-care (01) | LOC: HO.LAB 09:31 | PROVIDERS: Visit Provider Nurse Practitioner Family | DX: N30.10 Interstitial cystitis (chronic) without hematuria (principal) | CPT/HCPCS: 88112 ==

== ENCOUNTER 2025-02-16 10:06 | Outpatient (REF) | payer OTHER, SELFPAY ==
--- NOTE | ~2025-02-16 | US_ITS ---
CLINICAL HISTORY: N30.10 - Interstitial cystitis (chronic) without hematuria US renal with Color Doppler Comparison: None Findings: Right kidney normal size and echotexture, 11.4 cm length. No hydronephrosis calculus or mass. Normal color flow. Left kidney normal size and echotexture, 10.5 cm length. No hydronephrosis calculus or mass. Normal color flow. Bladder was not prepped and therefore the patient was rescheduled for a bladder ultrasound at a later date Impression: 1. Normal renal ultrasound This document has been electronically signed by: Oziel Clancy MD on 02/16/2025 14:08:46
== END 2025-02-16 10:07 | disposition home or self-care (01) ==
LOC: HO.HMGCX 10:06
PROVIDERS: PCP Internal Medicine; Visit Provider Nurse Practitioner Family
DX: N30.10 Interstitial cystitis (chronic) without hematuria (principal); R39.9 Unspecified symptoms and signs involving the genitourinary system; R39.15 Urgency of urination
CPT/HCPCS: 76775

== ENCOUNTER → 2025-02-16 10:08 | Outpatient (BNV) | payer OTHER, SELFPAY | PROVIDERS: PCP Internal Medicine; Visit Provider Radiology Diagnostic Radiology | DX: N30.10 Interstitial cystitis (chronic) without hematuria (principal) | CPT/HCPCS: 76775 ==